=== PATIENT | female | born 1985 | race Hispanic/Latino ===

== ENCOUNTER 2018-01-30 10:17 | Emergency (ER) | payer MEDICARE | END 2018-01-30 11:10 | disposition home or self-care (01) | LOC: EDH 10:17 | DX: S61.012A Laceration without foreign body of left thumb without damage to nail, initial encounter (principal); Z72.0 Tobacco use; W45.8XXA Other foreign body or object entering through skin, initial encounter; Y93.89 Activity, other specified; Y92.89 Other specified places as the place of occurrence of the external cause; Y99.8 Other external cause status | CPT/HCPCS: 12041 ==

== ENCOUNTER 2018-10-01 22:10 | Emergency (ER) | payer MEDICARE ==
[2018-10-01] MEDS ORDERED: OCTYL 2-CYANOACRYLATE 1 EACH TP ONE (22:53)
== END 2018-10-01 23:14 | disposition home or self-care (01) ==
LOC: EDH 22:10
DX: S61.012A Laceration without foreign body of left thumb without damage to nail, initial encounter (principal); S61.211A Laceration without foreign body of left index finger without damage to nail, initial encounter; Z98.890 Other specified postprocedural states; W26.0XXA Contact with knife, initial encounter; Y93.G3 Activity, cooking and baking; Y92.89 Other specified places as the place of occurrence of the external cause; Y99.8 Other external cause status
CPT/HCPCS: 12001